=== PATIENT | male | born 1940 | race Caucasian/White ===

== ENCOUNTER → 2017-07-14 | Outpatient (CLI) | payer OTHER ==
[~2017-07-14] MED LIST: ALEVE220 M1 PO; ALLOPURINOL 30300 M1 PO; ALLOPURINOL 30300 M2 PO; ALLOPURINOL PO; AMBEREN PO; ASPIR 8181 MG PO; ASPIRIN81 M2 PO; ATORVASTATIN CA40 MG PO; BETIMOL OPHTHALMIC; COLACE 100 MG100 MG PO; COREG6.25 MG PO; COUMADIN 5 MG TA5 M1 PO; ENOXAPARIN100 MG/11 SUBQ; FISHOIL PO; FLEXERIL PO; LEVAQUIN 500 M500 M2 PO; LEVOFLOXACIN250 MG PO; LISINOPRIL-HCT1 EAC1 PO; LISINOPRIL10 MG PO; LORTAB PO; LUMIGAN2.5 M1 OPHTHALMIC; LUMIGAN2.5 M1 OTIC; MIRALAX17 G1 PO; PACERONE 200 M200 M1 PO; PAXIL10 MG; PLAVIX 75 MG TA75 M1 PO; PRINZIDE 20-121 EACH PO; PROTONIX40 M1 PO; TESSALON PERLE100 MG PO; XARELTO20 MG PO
== END ==
LOC: M.RAD 15:56
DX: M48.56XA Collapsed vertebra, not elsewhere classified, lumbar region, initial encounter for fracture (principal); M43.26 Fusion of spine, lumbar region; M47.894 Other spondylosis, thoracic region; M47.896 Other spondylosis, lumbar region

== ENCOUNTER 2018-01-01 11:50 | Inpatient (IN) | payer OTHER ==
[~2018-01-01] VITALS: Ht 170.2 cm; Wt 99.8 kg
[~2018-01-01 11:50] MED LIST changes: -ASPIR 8181 MG PO; -ATORVASTATIN CA40 MG PO; -COREG6.25 MG PO; -LISINOPRIL10 MG PO; -LUMIGAN2.5 M1 OTIC; -PACERONE 200 M200 M1 PO; -PLAVIX 75 MG TA75 M1 PO; -XARELTO20 MG PO
[2018-01-01 11:56] VITALS: BP 153/101
[2018-01-01] MEDS ORDERED: LISINOPRIL10 MG PO (12:02)
[2018-01-01] MEDS ORDERED: LUMIGAN2.5 M1 OTIC (12:02)
[2018-01-01 12:24] LABS: ABSOLUTE BASOPHILS 0.1 thou/uL (0.0-0.2); ABSOLUTE EOSINOPHILS 0.1 thou/uL (0.0-0.7); ABSOLUTE LYMPHOCYTES 1.9 thou/uL (0.8-5.3); ABSOLUTE MONOCYTES 0.6 thou/uL (0.0-1.2); ABSOLUTE NEUTROPHILS 4.2 thou/uL (1.6-8.1); EOSINOPHILS 1.9 %; HEMATOCRIT 40.9 % (42.0-52.0); HEMOGLOBIN 13.7 gm/dL (14.0-18.0); LYMPHOCYTES 27.5 %; MCH 29.9 pg (26.0-34.0); MCHC 33.4 g/dL (28.0-37.0); MCV 89.4 fL (80.0-100.0); MONOCYTES 8.2 %; MPV 8.5 fl. (7.2-11.1); NUCLEATED RBCS 0 /100WBC; PLATELET COUNT* 162 thou/uL (150-400); POLYS 61.4 %; RBC 4.57 mil/uL (4.50-6.00); WBC 6.9 thou/uL (4.0-11.0)
[2018-01-01 12:33] LABS: APTT 27.3 Seconds (25.0-31.3); INR 1.1; PROTIME 10.5 Seconds (9.20-11.50)
[2018-01-01 12:36] LABS: ANION GAP 11 mmol/L (7-16); BUN 21 mg/dL (7-18); CALCIUM 8.5 mg/dL (8.5-10.1); CHLORIDE 108 mmol/L (98-107); CO2 24 mmol/L (21-32); CREATININE 1.7 mg/dL (0.6-1.3); GLUCOSE 114 mg/dL (70-99); POTASSIUM 4.1 mmol/L (3.5-5.1); SODIUM 143 mmol/L (136-145)
[2018-01-01 12:48] LABS: ALBUMIN 3.6 g/dL (3.4-5.0); ALKALINE PHOSPHATASE 75 U/L (46-116); LIPASE 129 U/L (73-393); MAGNESIUM 2.1 mg/dL (1.8-2.4); NT-PRO BRAIN NAT PEPTIDE 2938 pg/mL (<300); SGOT 21 U/L (15-37); SGPT 33 U/L (30-65); TOTAL BILIRUBIN 0.7 mg/dL (<0.1-1.0); TROPONIN-I LEVEL <0.06 ng/mL (<0.06)
[2018-01-01 15:00] VITALS: BP 163/91
--- NOTE | 2018-01-01 15:01 | EKG ---
[place] [address] ELECTROCARDIOGRAM REPORT Name: STERLING HILLMAN Room: [address] IN M.R.#: [id number] Admission: 01/01/18 Attend Phys: Renuka Daniel MD Discharge: 01/05/18 Date of : 36 Report #: [id number] THIS REPORT FOR: //name// [facility] ED Test Date: 2018-01-01 Test Time: 11:58:11 Pat Name: STERLING HILLMAN Department: Room: [facility] Gender: Bobbin Disker: Michael RAPP : 1940 Requested By: Abel Baron Order Number: [id number] MD: Lev Gonzalez Measurements Intervals [place] Rate: 104 P: NV: QRS: -33 QRSD: 102 T: 97 QT: 360 QTc: 474 Interpretive Statements Atrial fibrillation Left axis deviation Possible anteroseptal infarct, old Nonspecific T abnormalities, lateral leads Compared to ECG 03/29/2013 13:28:57 Left-axis deviation now present Myocardial infarct finding now present T-wave abnormality now present Sinus rhythm no longer present Atrial premature complex(es) no longer present Electronically Signed On 01-01-2018 15:01:25 CDT by Lev Gonzalez [email or web address] <ELECTRONICALLY SIGNED> By: Lev Gonzalez MD, [facility] 01/01/18 1501 1158 [id number] Lev Gonzalez MD, [facility] /EPI
[2018-01-01 15:05] VITALS: BP 157/87
--- NOTE | 2018-01-01 15:13 | 2DMMODE ---
[place] [address] 2 D/M-MODE ECHOCARDIOGRAM Name: STERLING HILLMAN Room: [address] IN .R.#: [id number] Admission: 01/01/18 Attend Phys: Renuka Daniel, Discharge: 01/05/18 Date of : 36 Date of Service: 01/01/18 1512 Report #: [id number] THIS REPORT FOR: //name// APPROVED REPORT Study performed: 01/01/2018 14:14:02 EXAM: Comprehensive 2D, Doppler, and color-flow Echocardiogram Patient Location: In-Patient Room #: ER Status: routine BSA: 2.14 HR: 90 bpm BP: 149/90 mmHg Rhythm: Atrial Fibrillation Other Information Study Quality: Good Indications Atrial Fibrillation 2D Dimensions LVEF(%): 45.83 (>50%) IVSd: 12.76 (7-11mm) LVOT Diam: 22.95 (18-24mm) LVDd: 61.90 mm PWd: 11.94 (7-11mm) Ascending Ao: 34.37 (22-36mm) LVDs: 47.45 (25-40mm) Aortic Root: 37.42 mm Guerra's LVEF: 45.83 % Volumes Left Atrial Volume (Systole) LA ESV Index: 62.90 mL/m2 Aortic Valve AoV Peak Vineet.: 1.34 m/s AO Peak Gr.: 7.23 mmHg LVOT Max P.22 mmHg AO Mean Gr.: 3.44 mmHg LVOT Mean P.56 mmHg LVOT Max V: 0.90 m/s AO V2 VTI: 20.80 cm LVOT Mean V: 0.57 m/s CHAVO (VTI): 3.36 cm2 LVOT V1 VTI: 16.90 cm AI [place]: 1.12 m/s2 AI PHT: 741.80 [place] [address] 2 D/M-MODE ECHOCARDIOGRAM Name: STERLING HILLMAN Room: [address] IN M.R.#: [id number] Admission: 01/01/18 Attend Phys: Renuka Daniel, Discharge: 01/05/18 Date of : 36 Date of Service: 01/01/18 1512 Report #: [id number] Mitral Valve MV Decel. Time: 129.10 ms MV PHT: 37.44 ms MVA (PHT): 5.88 cm2 TDI Medial E' Vineet.: 0.08 m/s Lateral E' Vineet.: 0.11 m/s Pulmonary Valve PV Peak Vineet.: 0.73 m/s PV Peak Gr.: 2.13 mmHg Tricuspid Valve RAP Estimate: 15.00 mmHg TR Peak Gr.: 29.89 mmHg RVSP: 44.89 mmHg PA Pressure: 44.89 mmHg Left Ventricle The left ventricle is normal size. There is moderate global hypokinesis of the left ventricle. Mild concentric left ventricular hypertrophy. Left ventricular systolic function is moderately decreased. LVEF is 40%. This study is not technically sufficient to allow evaluation of the LV diastolic function due to atrial fibrillation. Right Ventricle The right ventricle is normal size. The right ventricular systolic function is normal. Atria Left atrium is moderately dilated. The right atrium size is normal. Aortic Valve Mild aortic valve sclerosis. Mild to moderate aortic regurgitation. There is no aortic valvular stenosis. Mitral Valve The mitral valve is normal in structure. Mild to moderate mitral regurgitation. No evidence of mitral valve stenosis. Tricuspid Valve The tricuspid valve is normal in structure. Mild tricuspid regurgitation[place] [address] 2 D/M-MODE ECHOCARDIOGRAM Name: STERLING HILLMAN Room: [address]#: [id number] Admission: 01/01/18 Attend Phys: Renuka Daniel, Discharge: 01/05/18 Date of : 36 Date of Service: 01/01/18 1512 Report #: [id number] The pulmonary valve is normal in structure. Trace pulmonic regurgitation. Great Vessels The aortic root is normal in size. IVC is dilated and collapses <50% with inspiration. Pericardium There is no pericardial effusion. <Conclusion> The left ventricle is normal size. Mild concentric left ventricular hypertrophy. Left ventricular systolic function is moderately decreased. LVEF is 40%. This study is not technically sufficient to allow evaluation of the LV diastolic function due to atrial fibrillation. The right ventricle is normal size. Left atrium is moderately dilated. The right atrium size is normal. Mild aortic valve sclerosis. Mild to moderate aortic regurgitation. There is no aortic valvular stenosis. The mitral valve is normal in structure. Mild to moderate mitral regurgitation. No evidence of mitral valve stenosis. The tricuspid valve is normal in structure. IVC is dilated and collapses <50% with inspiration. There is no pericardial effusion. There is moderate global hypokinesis of the left ventricle. <ELECTRONICALLY SIGNED> By: Lev Gonzalez MD, FACC 01/01/18 151 11 151 Lev Gonzalez MD, FACC /INF
--- NOTE | 2018-01-01 16:12 | NUR ---
RECIEVIED REPORT FROM DESTINEY FLORES IN ER OF EXPECTED TRANSFER AT 1414- DX: SOA WITH NEW ONSET OF A-FIB- PT ARRIVED TO UNIT VIA BED AT 1500, SBA TO BED WITH TRANSFER- CHEMICAL INSTRUMENTATION OFFICER PLACED ORDERED, TRACING A-FIB RATE CONTROLED-PT A&O X4- CONTINENT OF BOWEL AND BLADDER- SBA WITH TRANSFERS FOR SAFETY- VS 97.5 20 163/91 84 96% ON RA- LCTA IN UPPER LOBES, WHEEZING NOTED IN BASES- SOA NOTED ON EXERTION- ABDOMEN SOFT/ROUND/NON-TENDER, BS X4 QUADS- PT REPORTS LAST BM 12/31/17- 1+ BILATERAL ANKLE/PEDAL EDEMA NOTED, PT REPORTS TO HAVE BEEN THERE FOR AROUND 1 MONTH- IV NOTED TO RIGHT AC INTACT AND SL-PT NOTED TO HAVE BILATERAL HEARING AIDES IN PLACE- DENIES ANY C/O PAIN/DISCOMFORT AT THIS TIME- CALL LIGHT AND PERSONAL BELONGINGS WITH IN REACH- HOURLY ROUNDS IN PLACE R/T SAFETY/NEEDS- ALL NEEDS MET AT THIS TIME-WCTM
[2018-01-01 20:01] VITALS: BP 159/83
[2018-01-02] VITALS: BP 151/73
[2018-01-02 04:08] VITALS: BP 149/79
[2018-01-02 05:38] LABS: HEMATOCRIT 40.3 % (42.0-52.0); HEMOGLOBIN 13.3 gm/dL (14.0-18.0); MCH 29.7 pg (26.0-34.0); MCV 89.9 fL (80.0-100.0); MPV 9.4 fl. (7.2-11.1); RBC 4.48 mil/uL (4.50-6.00); RDW-CV 14.1 % (10.5-14.5); WBC 6.5 thou/uL (4.0-11.0)
--- NOTE | 2018-01-02 05:39 | NUR ---
PT IS ABLE TO COMMUNICATE HIS NEEDS TO STAFF EFFECIVELY. HE HAS DENIED THE NEED FOR PAIN RELIEF MEDICATION UP TO THIS TIME. POSSIBLE ECHO LATER TODAY PENDING CRDIOLOGY MD DECISION.
[2018-01-02 06:05] LABS: ALBUMIN 3.3 g/dL (3.4-5.0); ALKALINE PHOSPHATASE 67 U/L (46-116); ANION GAP 6 mmol/L (7-16); BUN 22 mg/dL (7-18); CALCIUM 8.6 mg/dL (8.5-10.1); CHLORIDE 107 mmol/L (98-107); CO2 27 mmol/L (21-32); CREATININE 1.6 mg/dL (0.6-1.3); GLUCOSE 89 mg/dL (70-99); MAGNESIUM 1.9 mg/dL (1.8-2.4); POTASSIUM 4.5 mmol/L (3.5-5.1); SGOT 22 U/L (15-37); SGPT 30 U/L (30-65); SODIUM 140 mmol/L (136-145); TOTAL BILIRUBIN 0.8 mg/dL (<0.1-1.0); TOTAL PROTEIN 6.2 g/dL (6.4-8.2); TROPONIN-I LEVEL <0.06 ng/mL (<0.06)
[2018-01-02 07:58] VITALS: BP 139/76
--- NOTE | 2018-01-02 10:29 | NUR ---
Pt is A&O. Resides at home with his . Independent with ADLS. No DME. No hx of HH. Hx of skilled at [facility]. Supportive family. Pt will likely need Xarelto at pa, to check cost. Goal is to return home. Following for disposition.
[2018-01-02 11:33] VITALS: BP 125/79
[2018-01-02 15:12] VITALS: BP 143/79
--- NOTE | 2018-01-02 18:17 | NUR ---
PT VSS THIS SHIFT. MULTIPLE CALLS FROM [facility] REGARDING TIME FOR STRESS TEST TODAY. LAST CALL STATED THAT THE PT NEEDS TO BE NPO AT MIDNIGHT AND NO CAFFIENE. CAFFIENE REMOVED FROM PT TRAY AT DINNER. PT AND FAMILY EDUCATED REGARDING DIET RESTRICTIONS AND POTENTIAL TIMES OF PROCEDURES OF 0900 & 1000 TOMORROW MORNING. PT TOLERATING RA AND DIET THIS SHIFT. PT UP AD BRIDGET WITH NO CONCERNS OR COMPLICATIONS AT THIS TIME. PT CONTROLLED AFIB THIS SHIFT. EDUCATION REGARDING MEDICATION COMPLIANCE AND NEW MEDICATIONS HE WILL BE DISCHARGED HOME WITH.
[2018-01-02 20:00] VITALS: BP 143/72
[2018-01-03] VITALS: BP 147/94
--- NOTE | 2018-01-03 02:01 | NUR ---
ASSUMED PT CARE AT 1915 REPORT RECEIVED FROM NURSE. PT IS ALERT AWAKE ORIENTED X 4 AFIB ON THE MONITOR. NPO AFTER MIDNIGHT FOR STRESS TEST SCHEDULED IN THE MORNING. EKG TO BE PERFORMED AT 0300 ORDERED. PT DOES NOT COMPLAIN OF PAIN. O2 SAT 96% ON RA. SHE IS LAYING IN BED, SLEEPING AT THIS MOMENNT. VITAL SIGNS ARE WITHIN NORMAL LIMIT.
--- NOTE | 2018-01-03 04:25 | NUR ---
03:00 EKG RESULT SHOWS AFIB WHICH MATCHES PT RYTHM ON THE MONITOR. PT HAS LIVIA AFIB SINCE ADMISSION. SOTOLOL WAS GIVEN ONETIME ON PREVIOUS SHIFT ORDERED ACCORDING TO CHARTING. STRESS TEST ORDERED IN THE MORNING. PT HAS BEEN NPO SINCE MIDNIGHT FOR STRESS TEST. NO CAFFEINE, NO BETA BLOCKERS, NO NITRATES GIVN.
[2018-01-03 04:43] VITALS: BP 125/82
--- NOTE | 2018-01-03 08:00 | NUR ---
RECIEVED REPORT. ASSUMED CARE OF PT AT 0730. VSS. CARDIAC MONTIORING IN PLACE AFIB. AM ASSESSMENT AND VITALS COMPLETED CHARTED. PT ALERT AND ORIENTED. PT UNHAPPY ABOUT HIS TESTS BEING DELAYED YESTERDAY. PT TELLING THIS NURSE ABOUT PREVIOUS EXPERIENCE WITH REGARDIG TESTS BEING DELAYED. APOLOGIZED FOR PT'S EXPERIENCES. PT INFORMED TEST IS SCHED. FOR 1400 TODAY AND WAS PROVIDED WITH BREAKFAST. PT ON RA. IV SALINE LOCKED. PT DENIES ANY COMPLAINTS OF PAIN OR DISCOMFORT. PT IS UP AD BRIDGET IN ROOM. PT INFORMED OF PLAN OF CARE. CALL LIGHT IS WITHIN REACH. WILL CONTINUE TO MONITOR FOR DURATION OF SHIFT.
[2018-01-03 08:16] VITALS: BP 156/82
[2018-01-03 11:36] VITALS: BP 155/77
--- NOTE | 2018-01-03 17:32 | EKG ---
[place] [address] ELECTROCARDIOGRAM REPORT Name: STERLING HILLMAN Room: [address] DIS IN M.R.#: [id number] Admission: 01/01/18 Attend Phys: Renuka Daniel MD Discharge: 01/05/18 Date of : 36 Report #: [id number] THIS REPORT FOR: //name// [facility] Test Date: 2018-01-03 Test Time: 03:38:35 Pat Name: STERLING HILLMAN Department: Room: [address] Gender: M Software Team Leader: KYLEE : 1940 Requested By: Terri Case Order Number: [id number] Reading MD: Lev Gonzalez Measurements Intervals [place] Rate: 84 P: NV: QRS: -6 QRSD: 99 T: 6 QT: 435 QTc: 515 Interpretive Statements Atrial fibrillation Anteroseptal infarct, old possible Prolonged QT interval Compared to ECG 01/01/2018 11:58:11 Prolonged QT interval now present Left-axis deviation no longer present T-wave abnormality no longer present Myocardial infarct finding still present Electronically Signed On 01-03-2018 17:32:08 CDT by Lev Gonzalez [email or web address] <ELECTRONICALLY SIGNED> By: Lev Gonzalez MD, [facility] 01/03/18 1732 0338 0338 Lev Gonzalez MD, [facility] /EPI
--- NOTE | 2018-01-03 18:47 | CARDNUC ---
[place] [address] CARDIAC NUCLEAR IMAGING REPORT Name: HILLMANSTERLING R Room: [address] IN .R.#: [id number] Admission: 01/01/18 Attend Phys: Renuka Daniel, Discharge: 01/05/18 Date of : 36 Date of Service: 01/03/18 1847 Report #: [id number] THIS REPORT FOR: //name// APPROVED REPORT Study performed: 01/03/2018 14:40:38 Indication: Dyspnea Patient Location: Out-[facility]: Belen Queen RN Ht: 5 ft 7 in Wt: 228 lbs BSA: 2.14 m2 BMI: 35.7 Medical History Medical History: atrial fib, hypertension Medications: rovaroxaban, apixaban, stotolol, lisinopril Allergies: erythromicin, penicillin, sulfa, tetanus Cardiac Risk Factors: age, hypertension Resting Data Rest SPECT myocardial perfusion imaging was performed in supine position 30 minutes following the intravenous injection of 10.9 mCi of Tc-99m Sestamibi. Time of rest injection: 1355 The images were gated to evaluate regional wall motion and calculate left ventricular ejection fraction. Administration Route: IV Administration Site: Right AC Pharmacologic Stress Pharmacologic stress test was performed by injecting Regadenoson 0.4 mg IV push over 10-15 seconds immediately followed by the intravenous injection of 32.3 mCi of Tc-99m Sestamibi. Time of stress injection: 15;50 Administration Route: IV Administration Site: Right AC Heart Rate at time of stress injection: 88 bpm. Gated Stress SPECT was performed 40 minutes after stress injection. The images were gated to evaluate regional wall motion and calculate left ventricular ejection fraction. [place] [address] CARDIAC NUCLEAR IMAGING REPORT Name: STERLING HILLMAN Room: [address] IN ..#: [id number] Admission: 01/01/18 Attend Phys: Renuka Daniel, Discharge: 01/05/18 Date of : 36 Date of Service: 01/03/18 1847 Report #: [id number] Stress Test: Pharmacologic stress testing performed using 0.4 mg of regadenoson per 5 mL given IV over 10 seconds. Reason for pharmacologic stress test: physical limitation. HR Max Heart Rate (APMHR): 141 bpm Resting HR: 92 bpm Target HR (85% APMHR): 119 bpm Max HR Achieved: 88 bpm % of APMHR: 62 Recovery HR: 91 bpm BP Resting BP: 154/85 mmHg Recovery BP: 140/80 mmHg ECG Resting ECG: Atrial Fibrillation Stress ECG: Atrial Fibrillation ST Change: None Arrhythmia: None Recovery ECG: Atrial Fibrillation Recovery ST Change: None Recovery Arrhythmia: None Clinical Reason for Termination: Completed protocol Stress Symptoms: none The patient tolerated Lexiscan infusion without significant symptoms. Stress ECG Conclusion The baseline 12-lead EKG shows atrial fibrillation without significant ST or T wave abnormality. EKGs obtained during and post Lexiscan infusion show atrial fibrillation with no significant ST or T wave changes when compared to baseline. Study Quality Study: Fair Artifact: Mild Diaphragmatic artifact Study Data Post stress, the left ventricular ejection was 32%.. Perfusion There is a large in size moderate intensity fixed defect involving the inferolateral wall. There is a [place] [address] CARDIAC NUCLEAR IMAGING REPORT Name: STERLING HILLMAN Room: [address] IN [facility].#: [id number] Admission: 01/01/18 Attend Phys: Renuka Daniel, Discharge: 01/05/18 Date of : 36 Date of Service: 01/03/18 1847 Report #: [id number] wall defect. Wall Motion There is severe global hypokinesis with akinesis of the inferior and lateral mcmanus. Nuclear Conclusion ECG Findings: negative for ischemia Clinical Findings: negative for ischemia Nuclear Findings: positive for ischemia Left Ventricular Function: abnormal Risk Study: high Myocardial perfusion images suggest prior infarct of the end for a lateral wall with a moderate region of lateral wall ischemia. Left ventricular systolic function is severely decreased. This is a high risk study. Interpreted by: Rl Sarah M.D. [facility] Electronically Approved: 01/03/2018 18:47:10 <Conclusion> The baseline 12-lead EKG shows atrial fibrillation without significant ST or T wave abnormality. EKGs obtained during and post Lexiscan infusion show atrial fibrillation with no significant ST or T wave changes when compared to baseline. <ELECTRONICALLY SIGNED> By: Rl Sarah MD, [facility] 01/03/181846 46 46 Rl Sarah MD, [facility] /INF
--- NOTE | 2018-01-03 19:00 | NUR ---
VSS. CARDIAC MONITORING IN PLACE WITH NO CHANGES THIS SHIFT. PT PROGRESSING TOWARDS GOALS. PT REMAINS ALERT AND ORIENTED. PT ON RA. IV SALINE LOCKED. PT DENIES ANY COMPLAINTS OF PAIN OR DISCOMFORT. PT IS UP AD BRIDGET. PT COMPLETED STRESS TEST. WILL CONTINUE TO MONITOR.
[2018-01-03 20:00] VITALS: BP 134/77
[2018-01-04] VITALS (16 sets, daily range): BP systolic 122–155; BP diastolic 69–99
--- NOTE | 2018-01-04 02:57 | NUR ---
ASSUMED PT CARE REPORT RECEIVED FROM NURSE PT IS ALERT ORIENTED X 3. A FIB ON THE MONITOR. PT O2 SAT ABOVE 95% ON RA. IV LINE IS PATENT. PT AWAITNG TO VASCULAR SONOGRAPHER VISIT IN THE [facility]. PT IS CURRENTLT NPO FOR DR VISIT IN THE [facility]. PT TOOK ALL HIS [employer] MEDS. NOW LAYING IN BED. NO CONCERNS . VITAL SIGNS WITHIN NORMAL LIMIT. WILL CONTIUE TO MONITOR.
--- NOTE | 2018-01-04 07:05 | NUR ---
PT I&O monitored uring the night. output 500cc of urine. input 200cc water.
--- NOTE | 2018-01-04 07:45 | NUR ---
RECIEVED REPORT. ASSUMED CARE OF PT AT 0730. VSS. CARDIAC MONITORING IN PLACE AFIB. AM ASSESSMENT AND VITALS COMPLETED CHARTED. PT ALERT AND ORIETNED. PT ON RA. IV SALINE LOCKED. PT IS UP AD BRIDGET. PT NPO PENDING CAARDIOLOGY. PT COMMUNICATES UNDERSTANDING. CALL LIGHT IS WITHIN REACH. WILL CONTINUE TO MONITOR
[2018-01-04 10:01] LABS: APTT 37.6 Seconds (25.0-31.3); INR 1.3; PROTIME 12.6 Seconds (9.20-11.50)
[2018-01-04 10:21] LABS: ANION GAP 8 mmol/L (7-16); BUN 21 mg/dL (7-18); CALCIUM 8.7 mg/dL (8.5-10.1); CHLORIDE 104 mmol/L (98-107); CHOLESTEROL 155 mg/dL (<200); CO2 27 mmol/L (21-32); CREATININE 1.6 mg/dL (0.6-1.3); GLUCOSE 94 mg/dL (70-99); HDL CHOLESTEROL 35 mg/dL (>40); LDL CHOLESTEROL 104 mg/dL (<100); POTASSIUM 4.1 mmol/L (3.5-5.1); SODIUM 139 mmol/L (136-145); TC:HDL 4.4 Ratio (Not establshd); TRIGLYCERIDE 83 mg/dL (<150); VLDL 17 mg/dL (<40)
[2018-01-04 10:25] LABS: SERUM ASSESSMENT Clear
--- NOTE | 2018-01-04 11:04 | EKG ---
[place] [address] ELECTROCARDIOGRAM REPORT Name: STERLING HILLMAN Room: [address] DIS IN M.R.#: [id number] Admission: 01/01/18 Attend Phys: Renuka Daniel MD Discharge: 01/05/18 Date of : 36 Report #: [id number] THIS REPORT FOR: //name// [facility] Test Date: 2018-01-04 Test Time: 09:55:07 Pat Name: STERLIGN HILLMAN Department: Room: [address] Gender: M Cycle Manager: BS : 1940 Requested By: Terri Case Order Number: [id number] Reading MD: Sagar Thomas Measurements Intervals [place] Rate: 75 P: [place]: QRS: -31 QRSD: 105 T: -17 QT: 408 QTc: 456 Interpretive Statements afib lvh nonspecific stt abn. Electronically Signed On 01-04-2018 11:03:54 CDT by Sagar Thomas [email or web address] <ELECTRONICALLY SIGNED> By: Sagar Thomas MD, [facility] 01/04/18 1103 D: [id number] 4 Sagar Thomas MD, FAC /EPI
--- NOTE | 2018-01-04 17:14 | NUR ---
VSS. CARDIAC MONTIORING IN PLACE AFIB. PT PROGRESSING TOWARDS GOALS. PT HAD CARDIAC CATH TODAY. PT HAD 1 STENT PLACED. ACCESS THROUGH RIGHT GROIN SITE REMAINS C/D/I. POSTITIVE PEDAL PULSES BILATERALLY. PT HAS VOICED NO COMPLAINTS OF PAIN OR DISCOMFORT THIS SHIFT. PT ON BEDREST UNTIL 2229. PT COMMUNICATES UNDERSTANDING. IVF INFUSING. PT INFORMED OF PLAN OF CARE. CALL LIGHT IS WITHIN REACH. WILL CONTINUE TO MONITOR FOR DURATION OF SHIFT.
--- NOTE | 2018-01-04 17:26 | CARD ---
[address] [address] CARDIAC CATH REPORT Name: STERLING HILLMAN Room: [address] IN M.R.#: [id number] Admission: 01/01/18 Attend Phys: Renuka Daniel MD Discharge: 01/05/18 Date of : 36 Report #: [id number] THIS REPORT FOR: //name// APPROVED REPORT Study performed: 01/04/2018 10:26:30 Patient Details Patient Status: In-Patient Room #: 206 The patient is a 77 year-old male Event Personnel Sagar Thomas Food Vendor, Alicia Gross RN RN, Lory Munguia RTR Scrub, Nadeem Linares, Romain Nathan Airbrush Artist Photography Procedures Performed Art Access - R femoral artery* SU Place w/wo Plasty Addl BR OM 2 DESADDL Left Heart Cath w/or w/o Coronaries [facility] Indication Atrial fibrillation, Dyspnea Risk Factors Arterial Hypertension Admission/Lab Medications/Medications given during procedure Heparin Unfract. Procedure Narrative The patient was brought electively to the Cardiac Catheterization Laboratory and was prepped and draped in a sterile manner. The right femoral was infiltrated with 1% Lidocaine subcutaneous anesthesia. A 6fr Ultimum Sheath sheath was inserted into the right femoral artery. Coronary angiography was performed using coronary diagnostic catheters. The right coronary system was accessed and visualized with a 6Fr JR4 catheter. The left coronary system was accessed and visualized with a 6Fr JL4 catheter. The left ventricle was accessed and visualized with a 6Fr angled pigtail catheter. Left ventricular/Aortic Valve gradient assessed via catheter pullback. Left ventriculogram was performed in BRIDGES projection. Closure device was deployed with a 6 Fr angioseal. The patient tolerated the procedure well and there were no complications associated with the procedure. [place] [address] CARDIAC CATH REPORT Name: STERLING HILLMAN Room: [address] IN .R.#: [id number] Admission: 01/01/18 Attend Phys: Renuka Daniel MD Discharge: 01/05/18 Date of : 36 Report #: [id number] Intraoperative Conscious Sedation Sedation start time: 11:20 Case end Time: 11:55 Fentanyl 25 mcg Versed 2 mg second sedation start time: 13:50 end time: 14:18 2 of versed Fluoro Time: 8.2 minutes Dose: DAP [id number] cGycm2 1849 mGy Contrast Type and Amount: Visipaque 200 ml Coronary Angiography The patient's coronary anatomy is co- dominant. Diagnostic Cath Left Main normal LAD mid calcified focal 50% Diagonal 1 normal Diagonal 2 normal Circumflex proximal normal OM1 large,prox. 80% stenosis OM2 normal Right Coronary mid 40-50% smooth stenosis R PDA small diffuse 50-70 % disease distally RPLV small, normal Left Ventriculography The left ventricle is normalmildly dilated in size with reduced contractility. The left ventricular ejection fraction is estimated to be 40%. Left ventricular wall motion abnormalities are not present. There is no mitral insufficiency. edp 15mmHg no gradient on pba Hemodynamics The aortic pressure is 120/63 mmHg with a mean of 85 mmHg. The left ventricular pressure is 110/5 mmHg with a mean of mmHg. The left ventricular end diastolic pressure is 11 mmHg. There was no gradient across the aortic valve upon pullback. Pullback from the left ventricle to the aorta revealed no gradient across the aortic valve. PCI Technique Lesion Anticoagulation was achieved with Heparin. Patient was preloaded with Plavix. Percutaneous coronary intervention was performed on the second obtuse marginal branch segment. The [place] [address] CARDIAC CATH REPORT Name: STERLING HILLMAN Room: [address] IN [facility]#: [id number] Admission: 01/01/18 Attend Phys: Renuka Daniel MD Discharge: 01/05/18 Date of : 36 Report #: [id number] intervention was 70% with ANIKA 3 flow. A XB 3.5 Guide Catheter was used to engage the lm ostium. A BMW 190 Interventional Guidewire was used to cross the lesion. STENT DEPLOYMENT A drug-eluting stent XIENCE ALPINE RX 2.25X12 was inserted and inflated up to 8.00atm for 7seconds. Repeat angiography revealed the following post-stent deployment results: 0% stenosis. Additional Inflation: 15.00atm for 17seconds. Additional Inflation: 17.00atm for 13seconds. Final angiography reveals 0 % stenosis with ANIKA 3 flow. Conclusion 1. mixed cardiomyopathy 2. moderate disease of RCA and LAD 3. severe stenosis in obtuse marginal vessel 4. EF 40% 5. successful placement of a drug eluting stent in the marginal branch Recommendations Cardiac Rehabilitation Referral Aggressive Medical Therapy Medications Administered Clopidogrel Diagnostic Cath Approved by: Sagar Thomas MD Date/Time: <ELECTRONICALLY SIGNED> By: Romain Nathan MD, FACC 01/04/181724 24 24Romain Nathan MD, FAC /INF
--- NOTE | 2018-01-04 17:44 | EKG ---
[place] [address] ELECTROCARDIOGRAM REPORT Name: STERLING HILLMAN Room: [address] DIS IN M.R.#: [id number] Admission: 01/01/18 Attend Phys: Renuka Daniel MD Discharge: 01/05/18 Date of : 36 Report #: [id number] THIS REPORT FOR: //name// [facility] Test Date: 2018-01-04 Test Time: 15:41:27 Pat Name: STERLING HILLMAN Department: Room: [address] Gender: M National Account Representative: : 1940 Requested By: Romain Nathan Order Number: [id number] Christa MD: Romain Nathan Measurements Intervals [place] Rate: 73 P: [place]: QRS: -30 QRSD: 110 T: -18 QT: 446 QTc: 492 Interpretive Statements Atrial fibrillation Left axis deviation septal infarct, old Borderline T abnormalities, inferior leads Compared to ECG 01/04/2018 09:55:07 Left ventricular hypertrophy no longer present Electronically Signed On 01-04-2018 17:44:14 CDT by Romain Nathan [email or web address] <ELECTRONICALLY SIGNED> By: Romain Nathan MD, FACC 01/04/18 1744 1541 1541 Romain Nathan MD, [facility] /EPI
[2018-01-05 00:01] VITALS: BP 116/80
[2018-01-05 04:00] VITALS: BP 138/72
[2018-01-05 05:29] LABS: HEMATOCRIT 38.8 % (42.0-52.0); HEMOGLOBIN 12.9 gm/dL (14.0-18.0); MCH 29.7 pg (26.0-34.0); MCHC 33.2 g/dL (28.0-37.0); MCV 89.3 fL (80.0-100.0); MPV 9.2 fl. (7.2-11.1); RBC 4.34 mil/uL (4.50-6.00); WBC 7.5 thou/uL (4.0-11.0)
--- NOTE | 2018-01-05 05:52 | NUR ---
ASSUMED CARE OF PATIENT AT 1930. PATIENT HAD CARDIAC CATH TODAY AND HAD 1 STENT PLACED. RIGHT GROIN SITE CLEAN, DRY, AND INTACT, WITH SMALL AMOUNT OF DRIED BLOOD NOTED. PATIENT HAS POSITIVE BILATERAL PEDAL PULSES. DENIES CP OR SOA. A-FIB (60S-70S) NOTED ON TELEMETRY. O2 SATURATION >95% ON ROOM AIR. ALL VSS. PATIENT DENIES ANY PAIN. IV FLUIDS COMPLETE AND IV IS NOW LOCKED. PATIENT IS A&O X4; UP AD BRIDGET IN THE ROOM. CALL LIGHT WITHIN REACH. WILL CONTINUE TO MONITOR PATIENT.
[2018-01-05 08:00] VITALS: BP 135/87
[2018-01-05] MEDS ORDERED: ATORVASTATIN CA40 MG PO (10:06)
[2018-01-05] MEDS ORDERED: PACERONE 200 M200 M1 PO (10:06)
[2018-01-05] MEDS ORDERED: PLAVIX 75 MG TA75 M1 PO (10:06)
[2018-01-05] MEDS ORDERED: ASPIR 8181 MG PO (10:06)
[2018-01-05] MEDS ORDERED: COREG6.25 MG PO (10:06)
--- NOTE | 2018-01-05 10:38 | NUR ---
ASSUMED CARE OF PT AT 0730. PT RESTING IN BED. PT A&0X4, ALGAACIQ. PT HAD HEART CATH T-1, RIGHT GROIN CATH SITE IS C/D/I WITH SOME DRIED BLOOD AND BRUISING NOTED. TULIO SANTACRUZ NP HERE TO SEE PT THIS AM AND CHANGED DRESSING AND PLACED BANDAID ON SITE. 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 ON RA SAT UPPER 90'S. DENIES ANY SHORTNESS OF BREATH. PT UP AD BRIDGET IN ROOM. PT GOAL FOR TODAY IS TO BE SEEN BY [facility] AND DISCHARGE HOME THIS AFTERNOON. AM ASSESSMENT CHARTED. MEDICATIONS PER JUL. PT REPOSITIONS SELF. HOURLY ROUNDING OBSERVED. BED IN LOW POSITION. CALL LIGHT WITHIN REACH. WILL CONTINUE PLAN OF CARE.
--- NOTE | 2018-01-05 10:49 | EKG ---
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 : 1940 Requested By: Romain Nathan Order Number: [id number] Christa MD: Romain Nathan Measurements Intervals [place] Rate: 72 P: [place]: QRS: -29 QRSD: 108 T: -21 QT: 458 QTc: 502 Interpretive Statements Atrial fibrillation Borderline left axis deviation Probable septal infarct, old Borderline T abnormalities, inferior leads Prolonged QT interval Compared to ECG 01/04/2018 15:41:27 Prolonged QT interval now present Myocardial infarct finding still present T-wave abnormality still present Electronically Signed On 01-05-2018 10:49:02 CDT by Romain Nathan [email or web address] <ELECTRONICALLY SIGNED> By: Romain Nathan MD, FAC 01/05/18 1049 0254 0254 Romain Nathan MD, FAC /EPI
[2018-01-05 11:00] VITALS: BP 135/87
[2018-01-05 11:03] VITALS: BP 135/87
[2018-01-05] MEDS ORDERED: XARELTO20 MG PO (11:15)
--- NOTE | 2018-01-05 12:15 | NUR ---
DISCHARGE ORDERS RECEIVED. DISCHARGE INSTRUCTIONS, CARE NOTES, SCRIPTS AND FOLLOW UP APPTS GIVEN TO PT. PT COMMUNICATES UNDERSTANDING OF DISCHARGE TEACHING. 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 PT DISCHARGED WITH ALL BELONGINGS AND PAPERWORK VIA WHEELCHAIR WITH [employer] TO FAMILY OWN PERSONAL VEHICLE.
[2018-01-08 16:27] VITALS: BP 135/87
== END 2018-01-05 12:18 | disposition home or self-care (01) | DRG 247 ==
LOC: M.ERS 11:50 → M.TBA-ER 13:31 → M.2W 13:31
PROVIDERS: Emergency Medicine Emergency Medical Services; Internal Medicine Cardiovascular Disease; Nurse Practitioner Family; ADMIT Internal Medicine
PROC: 027034Z Dilation of Coronary Artery, One Artery with Drug-eluting Intraluminal Device, Percutaneous Approach (ICD-10-PCS; principal; 2018-01-04)
PROC: 4A023N7 Measurement of Cardiac Sampling and Pressure, Left Heart, Percutaneous Approach (ICD-10-PCS; principal; 2018-01-04)
PROC: B2151ZZ Fluoroscopy of Left Heart using Low Osmolar Contrast (ICD-10-PCS; principal; 2018-01-04)
PROC: B2111ZZ Fluoroscopy of Multiple Coronary Arteries using Low Osmolar Contrast (ICD-10-PCS; principal; 2018-01-04)
DX: I25.10 Atherosclerotic heart disease of native coronary artery without angina pectoris (principal); N17.9 Acute kidney failure, unspecified; I13.0 Hypertensive heart and chronic kidney disease with heart failure and stage 1 through stage 4 chronic kidney disease, or unspecified chronic kidney disease; I50.22 Chronic systolic (congestive) heart failure; I42.8 Other cardiomyopathies; I48.91 Unspecified atrial fibrillation; H40.9 Unspecified glaucoma; N18.3 Chronic kidney disease, stage 3 (moderate); I25.2 Old myocardial infarction; Z79.82 Long term (current) use of aspirin; Z79.899 Other long term (current) drug therapy; Z88.1 Allergy status to other antibiotic agents; Z88.0 Allergy status to penicillin; Z88.2 Allergy status to sulfonamides; Z88.7 Allergy status to serum and vaccine; Z85.46 Personal history of malignant neoplasm of prostate; Z86.711 Personal history of pulmonary embolism; Z79.01 Long term (current) use of anticoagulants; Z87.891 Personal history of nicotine dependence

== ENCOUNTER → 2018-03-06 | Outpatient (CLI) | payer OTHER ==
[~2018-03-06] MED LIST changes: +ASPIR 8181 MG PO; +ATORVASTATIN CA40 MG PO; +COREG6.25 MG PO; +LISINOPRIL10 MG PO; +LUMIGAN2.5 M1 OTIC; +PACERONE 200 M200 M1 PO; +PLAVIX 75 MG TA75 M1 PO; +XARELTO20 MG PO
== END ==
LOC: M.ULTRA 17:00
DX: M79.662 Pain in left lower leg (principal); R22.42 Localized swelling, mass and lump, left lower limb; I10 Essential (primary) hypertension; Z88.0 Allergy status to penicillin; Z72.89 Other problems related to lifestyle

== ENCOUNTER → 2018-11-07 | Outpatient (CLI) | payer OTHER ==
[2018-11-07 12:57] LABS: ALBUMIN 3.9 g/dL (3.4-5.0); DIRECT BILIRUBIN 0.2 mg/dL (<0.1-0.3); TOTAL PROTEIN 7.2 g/dL (6.4-8.2)
== END ==
LOC: M.LAB 12:01
PROVIDERS: Internal Medicine Cardiovascular Disease
DX: J84.9 Interstitial pulmonary disease, unspecified (principal); Z79.899 Other long term (current) drug therapy

== ENCOUNTER → 2019-05-27 | Outpatient (CLI) | payer OTHER ==
[2019-05-27 10:30] LABS: ALBUMIN 3.7 g/dL (3.4-5.0); DIRECT BILIRUBIN 0.2 mg/dL (<0.1-0.3); TOTAL BILIRUBIN 0.6 mg/dL (<0.1-1.0); TOTAL PROTEIN 7.1 g/dL (6.4-8.2)
== END ==
LOC: M.RAD 09:56
PROVIDERS: Internal Medicine Cardiovascular Disease
DX: M43.8X6 Other specified deforming dorsopathies, lumbar region (principal); M47.814 Spondylosis without myelopathy or radiculopathy, thoracic region; Z79.899 Other long term (current) drug therapy

== ENCOUNTER → 2019-06-13 | Outpatient (CLI) | payer MEDICARE | LOC: M.MRI 06:52 | DX: M47.812 Spondylosis without myelopathy or radiculopathy, cervical region (principal); M43.12 Spondylolisthesis, cervical region; M25.78 Osteophyte, vertebrae; I10 Essential (primary) hypertension; I25.10 Atherosclerotic heart disease of native coronary artery without angina pectoris; I48.0 Paroxysmal atrial fibrillation; M48.02 Spinal stenosis, cervical region ==

== ENCOUNTER → 2019-12-09 | Outpatient (CLI) | payer MEDICARE | LOC: M.MRI 13:57 | PROVIDERS: ATTEND Internal Medicine | DX: M51.35 Other intervertebral disc degeneration, thoracolumbar region (principal); M54.42 Lumbago with sciatica, left side; I50.41 Acute combined systolic (congestive) and diastolic (congestive) heart failure; C61 Malignant neoplasm of prostate; I10 Essential (primary) hypertension; E78.2 Mixed hyperlipidemia; M48.05 Spinal stenosis, thoracolumbar region; M43.26 Fusion of spine, lumbar region; N28.1 Cyst of kidney, acquired; M47.816 Spondylosis without myelopathy or radiculopathy, lumbar region; M51.26 Other intervertebral disc displacement, lumbar region ==

== ENCOUNTER → 2020-02-28 | Outpatient (CLI) | payer MEDICARE ==
[2020-02-28 10:58] LABS: ALBUMIN 4.2 g/dL (3.4-5.0); DIRECT BILIRUBIN 0.2 mg/dL (<0.1-0.3); TOTAL BILIRUBIN 0.7 mg/dL (<0.1-1.0); TOTAL PROTEIN 7.5 g/dL (6.4-8.2)
== END ==
LOC: M.LAB 10:19
PROVIDERS: ATTEND Internal Medicine Cardiovascular Disease
DX: I51.7 Cardiomegaly (principal); Z79.899 Other long term (current) drug therapy

== ENCOUNTER → 2020-09-07 | Outpatient (CLI) | payer MEDICARE ==
[2020-09-07 10:34] LABS: ALBUMIN 3.8 g/dL (3.4-5.0); DIRECT BILIRUBIN 0.1 mg/dL (<0.1-0.3); TOTAL BILIRUBIN 0.5 mg/dL (<0.1-1.0); TOTAL PROTEIN 7.2 g/dL (6.4-8.2)
== END ==
LOC: M.LAB 09:40
PROVIDERS: ATTEND Internal Medicine Cardiovascular Disease
DX: I48.0 Paroxysmal atrial fibrillation (principal); I50.32 Chronic diastolic (congestive) heart failure; Z79.899 Other long term (current) drug therapy

== ENCOUNTER → 2020-10-20 | Outpatient (CLI) | payer MEDICARE ==
[~2020-10-20] VITALS: Ht 170.2 cm; Wt 98.9 kg
[2020-10-20] VITALS (7 sets, daily range): BP systolic 119–157; BP diastolic 49–64
[~2020-10-20] MED LIST changes: +AMIODARONE HCL400 MG PO; +CARVEDILOL6.25 M1 PO; +LASIX 20 MG TAB20 MG PO
[2020-10-20 10:20] LABS: HEMATOCRIT 30.3 % (42.0-52.0); HEMOGLOBIN 10.1 gm/dL (14.0-18.0); MCH 29.9 pg (26.0-34.0); MCHC 33.4 g/dL (28.0-37.0); MCV 89.6 fL (80.0-100.0); MPV 7.8 fl. (7.2-11.1); RBC 3.38 mil/uL (4.50-6.00); WBC 5.6 thou/uL (4.0-11.0)
[2020-10-20 10:32] LABS: ANION GAP 9 mmol/L (7-16); BUN 36 mg/dL (7-18); CALCIUM 8.7 mg/dL (8.5-10.1); CHLORIDE 107 mmol/L (98-107); CO2 26 mmol/L (21-32); GLUCOSE 93 mg/dL (70-99); POTASSIUM 4.2 mmol/L (3.5-5.1); SODIUM 142 mmol/L (136-145)
[2020-10-20 10:33] LABS: APTT 28.4 Seconds (25.0-31.3); INR 1.1; PROTIME 11.3 Seconds (9.20-11.50)
[2020-10-20 10:34] LABS: ALBUMIN 3.5 g/dL (3.4-5.0); ALKALINE PHOSPHATASE 92 U/L (46-116); CHOLESTEROL 110 mg/dL (<200); HDL CHOLESTEROL 40 mg/dL (>40); LDL CHOLESTEROL 54 mg/dL (<100); SGOT 13 U/L (15-37); SGPT 13 U/L (30-65); TC:HDL 2.8 Ratio (Not establshd); TOTAL BILIRUBIN 0.8 mg/dL (<0.1-1.0); TOTAL PROTEIN 6.9 g/dL (6.4-8.2); TRIGLYCERIDE 84 mg/dL (<150); VLDL 17 mg/dL (<40)
[2020-10-20 10:37] LABS: SERUM ASSESSMENT Clear
--- NOTE | 2020-10-20 12:40 | EKG ---
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: : 1940 Requested By: Rl Sarah Order Number: [id number] Christa MD: Lev Gonzalez Measurements Intervals [place] Rate: 70 P: [place]: QRS: -68 QRSD: 131 T: 111 QT: 437 QTc: 472 Interpretive Statements Afib/flut and V-paced complexes No further analysis attempted due to paced rhythm Artifact in lead(s) V1,V2 Compared to ECG 01/05/2018 02:54:25 Myocardial infarct finding no longer present T-wave abnormality no longer present Prolonged QT interval no longer present Electronically Signed On 10-20-2020 12:40:11 CDT by Lev Gonzalez [email or web address] <ELECTRONICALLY SIGNED> By: Lev Gonzalez MD, [facility] 10/20/20 1240 0953 0953 Lev oGnzalez MD, [facility] /EPI
--- NOTE | 2020-10-21 17:23 | CARD ---
[address] [address] CARDIAC CATH REPORT Name: STERLING IHLLMAN Room: [facility] CasperLink#: [id number] Admission: 10/20/20 Attend Phys: Rl Sarah MD Discharge: Date of : 36 Report #: [id number] THIS REPORT FOR: cc: Christie Cruz MD, Lin W. MD Liston, Michael J. MD [facility] ~ APPROVED REPORT Study performed: 10/20/2020 11:06:31 Patient Details Patient Status: Out-Patient Room #: The patient is a 80 year-old male Event Personnel Rl Sarah Garbage Pick Up Man, Nichol Herbert RN RN, Nadeem Linares Monitor, Samanta Pool RTR Scrub Procedures Performed Coronary angiography, Left heart catheterization Indication Positive stress test, Chest pain, Coronary artery disease Procedure Narrative A 6fr Ultimum Sheath sheath was inserted into the . Coronary angiography was performed using coronary diagnostic catheters. The right coronary system was accessed and visualized with a JR4 6fr catheter. The left coronary system was accessed and visualized with a JL4 6fr catheter. The left ventricle was accessed and visualized with a JR4 6fr (Pressures Only) catheter. Closure device was deployed with a Fr MynxGrip 6/7F. The patient tolerated the procedure well and there were no complications associated with the procedure. There was no hematoma. Intraoperative Conscious Sedation Sedation start time: 1147 Case end Time: 1159 Fentanyl 25 mcg Fluoro Time: 3.3 minutes Dose: DAP 25728 cGycm2 1032 mGy Contrast Type and Amount: Visipaque 130 ml Coronary Angiography [address] [address] CARDIAC CATH REPORT Name: STERLING HILLMAN [facility] [id number] Admission: 10/20/20 Attend Phys: Rl Sarah MD Discharge: Date of : 36 Report #: [id number] The patient's coronary anatomy is right dominant. Diagnostic Cath Left Main The left main coronary artery is short and normal and bifurcates into a left anterior descending and circumflex coronary arteries. LAD The left anterior descending coronary artery has a 40% ostial narrowing and 50% proximal narrowing. Diagonal 1 The first diagonal branch is free of significant disease. Diagonal 2 The second diagonal branch is free of significant disease. Circumflex The circumflex coronary artery appears normal in its proximal mid and distal portion. OM1 A small first obtuse marginal branch is free of significant disease. OM2 A large branch and second obtuse marginal branch has a widely patent stent proximally. The remainder the vessel is normal. Right Coronary The right coronary artery appears diffusely moderately plaque with 50% narrowing in the midportion. R PDA The right PDA appears free of significant disease. RPLV The right posterior lateral LV branch appears free of significant disease. Left Ventriculography Left Ventriculography was not performed. Hemodynamics The aortic pressure is 195/58 mmHg with a mean of 99 mmHg. The left ventricular pressure is 169/16 mmHg with a mean of mmHg. The left ventricular end diastolic pressure is 16 mmHg. Conclusion 1. Moderate nonocclusive coronary artery disease as outlined above. 2. Minimally elevated left ventricular end-diastolic pressure. Recommendations 1. Continue medical management and aggressive risk factor modification. <ELECTRONICALLY SIGNED> By: Rl Sarah MD, FACC 10/21/201722 22 22Micprimitivo Sarah MD, FACC /INF
== END | disposition home or self-care (01) ==
LOC: M.CL 09:33
PROVIDERS: ATTEND Internal Medicine Cardiovascular Disease
DX: R07.9 Chest pain, unspecified (principal); R94.39 Abnormal result of other cardiovascular function study; I25.10 Atherosclerotic heart disease of native coronary artery without angina pectoris; I10 Essential (primary) hypertension; H40.9 Unspecified glaucoma; Z98.890 Other specified postprocedural states; Z79.899 Other long term (current) drug therapy; Z90.49 Acquired absence of other specified parts of digestive tract

== ENCOUNTER → 2021-02-04 | Outpatient (CLI) | payer MEDICARE ==
--- NOTE | 2021-02-13 12:38 | PF ---
[address] [address] PULMONARY FUNCTION REPORT Name: STERLING HILLMAN [id number] Admission: 02/04/21 Attend Phys: Kristin Gallardo RN Discharge: Date of : 36 Report #: [id number] THIS REPORT FOR: cc: Christie Cruz MD, Lin W. MD Pervez, Adeel MD ~ DATE OF VISIT: 02/04/2021 The FEV1/FVC ratio is decreased to 57% with an FVC normal at 88% with FEV1 mildly decreased to 72%. The FEF 25-75 is also decreased to 39%. The flow volume loop is concave upward after the administration of a bronchodilator. There is a 13% increase in FEV1. Post-bronchodilator FEV1 of 1.88 liters. The FEF 25-75 also increases to 70%. LUNG VOLUMES: The total lung capacity is decreased to 59% with residual volume decreased to 27%. DIFFUSION CAPACITY: The DLCO as adjusted for hemoglobin is decreased to 85%. IMPRESSION: 1. There is marked restriction noted with a total lung capacity markedly decreased to only 59%. 2. Obstruction is also present, moderate with evidence of reversibility. 3. The DLCO as adjusted for hemoglobin is normal at 85%. <ELECTRONICALLY SIGNED> By: Misha Breaux MD 02/13/21 1238 04 MD naomi Bell
== END ==
LOC: M.PUL 10:52
PROVIDERS: ATTEND Nurse Practitioner
DX: J98.4 Other disorders of lung (principal); Z79.899 Other long term (current) drug therapy

== ENCOUNTER → 2021-03-04 | Outpatient (CLI) | payer MEDICARE | LOC: M.RAD 11:02 | PROVIDERS: ATTEND Internal Medicine | DX: R05.9 Cough, unspecified (principal); I12.9 Hypertensive chronic kidney disease with stage 1 through stage 4 chronic kidney disease, or unspecified chronic kidney disease; N18.30 Chronic kidney disease, stage 3 unspecified ==

== ENCOUNTER → 2021-03-23 | Outpatient (CLI) | payer MEDICARE | LOC: M.RAD 09:10 | PROVIDERS: ATTEND Internal Medicine Cardiovascular Disease | DX: I48.0 Paroxysmal atrial fibrillation (principal); I50.32 Chronic diastolic (congestive) heart failure; Z79.899 Other long term (current) drug therapy ==

== ENCOUNTER → 2021-07-19 | Outpatient (CLI) | payer BC | LOC: M.RAD 14:02 | PROVIDERS: ATTEND Internal Medicine | DX: M47.816 Spondylosis without myelopathy or radiculopathy, lumbar region (principal); M43.26 Fusion of spine, lumbar region; M25.78 Osteophyte, vertebrae; I70.0 Atherosclerosis of aorta ==